=== PATIENT | male | born 1965 | race Caucasian/White ===

== ENCOUNTER → 2016-12-12 | Outpatient (CLI) | payer BC ==
[2016-12-12 17:16] LABS: HEMOGLOBIN 15.9 gm/dl (14.0-17.5); RED BLOOD COUNT 5.15 M/UL (4.20-5.50); WHITE BLOOD COUNT 7.7 K/UL (4.5-11.0)
[2016-12-12 17:43] LABS: BUN/CREATININE RATIO 20 (0-10)
== END ==
LOC: LAB 15:52
PROVIDERS: Nurse Practitioner
DX: Z12.5 Encounter for screening for malignant neoplasm of prostate (principal); I10 Essential (primary) hypertension; E78.5 Hyperlipidemia, unspecified
CPT/HCPCS: 36415; 80053; 84153; 84436; 84443; 84480; 85025

== ENCOUNTER → 2016-12-14 | Outpatient (CLI) | payer BC | LOC: KOH-I 14:12 | DX: R10.9 Unspecified abdominal pain (principal) | CPT/HCPCS: 74176 ==